=== PATIENT | male | born 1970 | race Caucasian/White ===

== ENCOUNTER → 2020-05-19 11:55 | Outpatient (BNVA) | payer OTHER, SELFPAY | PROVIDERS: PCP Nurse Practitioner Family; Visit Provider Internal Medicine Cardiovascular Disease | DX: I35.0 Nonrheumatic aortic (valve) stenosis (principal) | CPT/HCPCS: 93005 ==

== ENCOUNTER → 2020-12-16 09:11 | Outpatient (REF) | payer OTHER, SELFPAY ==
--- NOTE | 2020-12-16 09:15 | CA_ITS ---
Transthoracic Echocardiogram Patient (Last, First, Middle): Roberto Baldwin J Gender: Male Date of : 1970 Age: 50 Procedure Date: 12/16/2020 Procedure Type: Transthoracic Echocardiogram Location: OP Height: 175.26 cm Weight: 75.75 kg BSA: 1.91 m2 Heart Rate: bpm BP: 160 / 80 mmHg Apns: Referring MD: Kenny Alas MD Symptoms: I35.0 - Nonrheumatic aortic (valve) stenosis Study Quality: Good ECG Rhythm: Sinus Conclusions: - The left ventricular systolic function is normal. The visually estimated ejection fraction is between 60-65%. - There is moderate septal asymmetric hypertrophy. - There is severe calcification of the aortic valve. There is severe aortic valve stenosis. The peak aortic velocity is 4.31 m/s with a calculated peak gradient of 74 mmHg. The mean gradient is 43 mmHg. The aortic valve area is 0.85 cm2. There is no aortic valve regurgitation. Suspect bicuspid valve with fusion between left and right coronary cusps. - There is mild aortic annular dilatation measuring 3.30 cm and mild dilatation of the ascending aorta measuring 3.80 cm. - Freely mobile echodensity (about 1.1x0.4cm) arising from the sinus of Valsalva adjacent to non-coronary cusp, likely calcification. Findings Left Ventricle Normal left ventricular cavity size. The left ventricular systolic function is normal. The visually estimated ejection fraction is between 60-65%. There is no evidence of regional wall motion abnormalities. Diastolic function is normal for age. There is moderate septal asymmetric hypertrophy. Right Ventricle Mildly increased right ventricular cavity size. There is normal right ventricular systolic function. Atria Both atria are normal in size. Aortic Valve There is severe calcification of the aortic valve. There is severe aortic valve stenosis. The peak aortic velocity is 4.31 m/s with a calculated peak gradient of 74 mmHg. The mean gradient is 43 mmHg. The aortic valve area is 0.85 cm2. There is no aortic valve regurgitation. Suspect bicuspid valve with fusion between left and right coronary cusps. Dimensionless index 0.25. Mitral Valve The mitral valve appears normal. There is trace mitral valve regurgitation. There is no mitral valve stenosis. Pulmonic Valve The pulmonic valve was not well visualized. There is trace pulmonic valve regurgitation. Tricuspid Valve Normal tricuspid valve structure. There is trace tricuspid valve regurgitation. The pulmonary artery systolic pressure is normal. Great Vessels There is mild aortic annular dilatation measuring 3.30 cm and mild dilatation of the ascending aorta measuring 3.80 cm. Freely mobile echodensity (about 1.1x0.4cm) arising from the sinus of Valsalva adjacent to non-coronary cusp, likely calcification. Venous The inferior vena cava is mildly dilated and collapses greater than 50% with inspiration. Pericardium/Pleural There is no evidence of pericardial effusion. Prior Study Comparison Changes noted compared to prior study dated: 12/06/2019. See comments on ascending aorta. Aortic valve gradients are similar but valve area smaller. Measurements 2D Linear Measurements RVIDd: 3.23 RVIDd Index: 1.69 IVSd: 1.39 0.6-0.9/0.6-1.0 cm LVIDd: 5.06 3.9-5.3/4.2-5.9 cm LVIDd Index: 2.65 2.4-3.2/2.2-3.1 cm/m2 LVIDs: 2.76 2.0-3.6 cm LVPWd: 0.98 0.7-1.1 cm Ao Root: 3.30 2.1-3.5 cm LA Diam: 3.90 2.7-3.8/3.0-4.0 cm LAIDs Index: 2.04 1.5-2.3 cm/m2 LV Mass: 292.02 67-162/88-224 g LV Mass Index: 152.89 43-95/49-115 g/m2 LVOT Diam: 2.10 3.0+(-)1.3 cm 2D Systolic Function EF 4C: 67.30 >55% EF 2C: 80.30 >55% EF BiP: 74.60 >55% Mitral Valve MV Pk E: 0.74 MV PK A: 0.71 MV Decel Time: 215.00 E/A: 1.00 E'Lateral: 7.51 E'Medial: 6.74 E/E' Med: 11.00 E/E' Lat: 9.90 PHT: 63.00 MVA PHT: 3.49 Decel Taylor: 3.45 Aortic Valve AoV Pk Rios: 4.31 AoV Mn Rios: 3.07 AoV VTI: 1.06 AoV Pk Grad: 74.00 Aov Mn Grad: 43.00 SAL Cont.VTI: 0.85 LVOT LVOT Pk Rios: 1.08 LVOT Mn Rios: 0.74 LVOT VTI: 0.26 LVOT Pk Grad: 5.00 LVOT Mn Grad: 3.00 LVOT Diam: 2.10 LVOT Area: 3.46 Diastolic Function MV Pk E: 0.74 MV Pk A: 0.71 E/A: 1.00 E'Medial: 6.74 E/E' Med: 11.00 E' Laterial: 7.51 E/E' Lat: 9.90 Tricuspid Valve TR Pk Rios: 2.59 TR Pk Grad: 27.00 RA Press: 8.00 RVSP: 35.00 Great Vessels Aorta Ao Root-2D: 3.30 2.0-3.7 cm Ao Annulus: 3.30 1.4-2.6 cm Ao Asc: 3.80 2.1-3.4 cm Ao Arch: 2.90 Updated in Other Vendor System with Status of Final Kenneth Maria MD electronically signed on 12/16/2020 12:35:20 PM with status of Final
== END ==
LOC: HO.CARD 09:11
PROVIDERS: PCP Nurse Practitioner Family; Visit Provider Internal Medicine Cardiovascular Disease
DX: I35.0 Nonrheumatic aortic (valve) stenosis (principal)
CPT/HCPCS: 93306

== ENCOUNTER 2020-12-22 14:59 | Outpatient (REF) | payer OTHER, SELFPAY ==
[2020-12-22 16:25] LABS: Hematocrit 42.9 % (42-52); Mean Corpuscular Hemoglobin 31.9 pg (27.0-33.0); Mean Corpuscular Volume 91.3 fL (80-98); Mean Platelet Volume 10.4 fL (9.4-12.4); Platelet Count 239 X10*3/uL (160-400); White Blood Count 7.5 X10*3/uL (4.8-10.8)
[2020-12-22 16:32] LABS: Prothrombin Time 11.4 SEC (9.9-13.0)
[2020-12-22 16:41] LABS: Anion Gap 14 (12-20); Blood Urea Nitrogen 14 mg/dL (9-16); Calcium 9.9 mg/dL (8.4-10.2); Carbon Dioxide 26 mmol/L (22-29); Chloride 103 mmol/L (96-108); Estimated Glomerular Filt Rate > 60; Glucose Random 86 mg/dL (60-115); Potassium 4.5 mmol/L (3.3-5.1); Sodium 138 mmol/L (135-145)
== END 2020-12-22 15:00 | disposition home or self-care (01) ==
LOC: HO.LAB 14:59
PROVIDERS: PCP Nurse Practitioner Family; Visit Provider Internal Medicine Cardiovascular Disease
DX: Q23.1 Congenital insufficiency of aortic valve (principal)
CPT/HCPCS: 36415; 80048; 85027; 85610; 87040

== ENCOUNTER → 2021-03-26 10:57 | Outpatient (BNVA) | payer OTHER, SELFPAY | PROVIDERS: PCP Nurse Practitioner Family; Visit Provider Internal Medicine Cardiovascular Disease | DX: Q23.1 Congenital insufficiency of aortic valve (principal); Z95.2 Presence of prosthetic heart valve; Z88.0 Allergy status to penicillin; Z91.013 Allergy to seafood; Z79.899 Other long term (current) drug therapy | CPT/HCPCS: 93005 ==

== ENCOUNTER → 2021-08-05 13:39 | Outpatient (BNVA) | payer OTHER, SELFPAY | PROVIDERS: PCP Nurse Practitioner Family; Visit Provider Internal Medicine Cardiovascular Disease ==

== ENCOUNTER → 2021-09-29 13:05 | Outpatient (REF) | payer OTHER, SELFPAY ==
--- NOTE | 2021-09-29 13:08 | CA_ITS ---
Transthoracic Echocardiogram Patient (Last, First, Middle): Roberto Baldwin J Gender: Male Date of : 1970 Age: 51 Procedure Date: 09/29/2021 Procedure Type: Transthoracic Echocardiogram Location: OP Height: 172.72 cm Weight: 80.74 kg BSA: 1.95 m2 Heart Rate: bpm BP: 138 / 83 mmHg Service Observer: CP/TO Referring MD: Kenny Alas MD Symptoms: Z95.2 - Presence of prosthetic heart valve Study Quality: Good Conclusions: - Normal left ventricular size and systolic function. There is mildly increased left ventricular wall thickness. The visually estimated ejection fraction is between 55-60%. - Moderately increased right ventricular cavity size. There is borderline right ventricular systolic function. - The left atrium is moderately dilated. - A bioprosthetic aortic valve is present. - Mean gradient is slightly higher for this valve type. - There is mild dilatation of the ascending aorta measuring 4.10 cm. Findings Left Ventricle Normal left ventricular size and systolic function. There is mildly increased left ventricular wall thickness. The visually estimated ejection fraction is between 55-60%. There is no evidence of regional wall motion abnormalities. There is paradoxical septal motion consistent with post-operative status. Diastolic function is normal for age. Right Ventricle Moderately increased right ventricular cavity size. There is borderline right ventricular systolic function. Atria The left atrium is moderately dilated. The right atrium is mildly dilated. Aortic Valve A bioprosthetic aortic valve is present. The prosthetic aortic valve appears to be functioning normally. The peak aortic velocity is 2.65 m/s. The mean gradient is 14 mmHg. The aortic valve area is 1.64 cm2. There is no aortic valve regurgitation. Mean gradient is slightly higher for this valve type. Mitral Valve The mitral valve appears normal. There is no mitral valve regurgitation. There is no mitral valve stenosis. Pulmonic Valve The pulmonic valve is likely normal. Tricuspid Valve Normal tricuspid valve structure and function. There is trace tricuspid valve regurgitation. Indeterminate right atrial pressure. Great Vessels There is mild dilatation of the ascending aorta measuring 4.10 cm. The visualized portions of the pulmonary artery and branches are normal. Venous The inferior vena cava is normal in size and collapses greater than 50% with inspiration. Pericardium/Pleural There is no evidence of pericardial effusion. Prior Study Comparison Changes noted compared to prior study dated: 12/16/2020. Moderately increased RV size and borderline function. Left atrium is moderately dilated. Bioprosthetic valve in aortic position. Mildly dilated ascending aorta 4.1 cm. Measurements 2D Linear Measurements IVSd: 1.11 0.6-0.9/0.6-1.0 cm LVIDd: 4.56 3.9-5.3/4.2-5.9 cm LVIDd Index: 2.34 2.4-3.2/2.2-3.1 cm/m2 LVIDs: 2.50 2.0-3.6 cm LVPWd: 1.08 0.7-1.1 cm LA Diam: 3.90 2.7-3.8/3.0-4.0 cm LAIDs Index: 2.00 1.5-2.3 cm/m2 LV Mass: 221.24 67-162/88-224 g LV Mass Index: 113.45 43-95/49-115 g/m2 LVOT Diam: 1.90 3.0+(-)1.3 cm 2D Systolic Function EF 4C: 62.30 >55% EF 2C: 65.20 >55% EF BiP: 64.20 >55% Mitral Valve MV Pk E: 1.00 MV PK A: 0.59 MV Decel Time: 163.00 E/A: 1.70 E'Lateral: 12.80 E'Medial: 7.83 E/E' Med: 12.80 E/E' Lat: 7.80 PHT: 48.00 MVA PHT: 4.58 Decel Stephens: 6.14 Aortic Valve AoV Pk Rios: 2.65 AoV Mn Rios: 1.75 AoV VTI: 0.56 AoV Pk Grad: 28.00 Aov Mn Grad: 14.00 SAL Cont.VTI: 1.64 LVOT LVOT Pk Rios: 1.49 LVOT Mn Rios: 1.01 LVOT VTI: 0.32 LVOT Pk Grad: 9.00 LVOT Mn Grad: 5.00 LVOT Diam: 1.90 LVOT Area: 2.84 Diastolic Function MV Pk E: 1.00 MV Pk A: 0.59 E/A: 1.70 E'Medial: 7.83 E/E' Med: 12.80 E' Laterial: 12.80 E/E' Lat: 7.80 Right Ventricle TAPSE (mm): 18.40 TVS' Rios: 10.00 Tricuspid Valve TR Pk Rios: 2.08 TR Pk Grad: 17.00 RA Press: 3.00 RVSP: 20.00 Great Vessels Aorta Sinus of Valsalva: 3.23 2.0-3.[address] [place]: 2.83 1.7-3.4 cm Ao Asc: 4.10 2.1-3.4 cm Ao Arch: 3.20 Updated in Other Vendor System with Status of Final Kenny Alas MD electronically signed on 10/01/2021 10:15:46 PM with status of Final
== END ==
LOC: HO.CARD 13:05
PROVIDERS: PCP Nurse Practitioner Family; Visit Provider Internal Medicine Cardiovascular Disease
DX: Z95.2 Presence of prosthetic heart valve (principal)
CPT/HCPCS: 93306

== ENCOUNTER → 2021-10-06 13:29 | Outpatient (BNVA) | payer OTHER, SELFPAY ==
[2021-06-18 14:10] VITALS: BP 140/82; BMI 26.1
== END ==
PROVIDERS: PCP Nurse Practitioner Family; Visit Provider Nurse Practitioner Family
DX: I35.0 Nonrheumatic aortic (valve) stenosis (principal); Q23.1 Congenital insufficiency of aortic valve; R55 Syncope and collapse; Z95.2 Presence of prosthetic heart valve
CPT/HCPCS: 93005

== ENCOUNTER → 2021-10-13 11:22 | Outpatient (REF) | payer OTHER, SELFPAY ==
--- NOTE | 2021-10-13 11:24 | HM_ITS ---
* Total monitoring time 2 days and 23 hours. * Underlying rhythm is sinus. Average rate 63/Min. Range 39 to 172/Min. About 5% of the time, rate greater than 100/Min. * No atrial fibrillation or flutter. * Very rare supraventricular ectopy with minimal burden. * Very rare ventricular ectopy with minimal burden. One 3 beat run labeled as NSVT appears rather to be aberrant conduction based on morphology. * No patient events. MTDD
== END ==
LOC: HO.CARD 11:22
PROVIDERS: PCP Nurse Practitioner Family; Visit Provider Nurse Practitioner Family
DX: R55 Syncope and collapse (principal)
CPT/HCPCS: 93242

== ENCOUNTER → 2022-02-17 12:34 | Outpatient (BNVA) | payer OTHER, SELFPAY | PROVIDERS: PCP Nurse Practitioner Family; Visit Provider Internal Medicine Cardiovascular Disease | DX: I51.7 Cardiomegaly (principal); R55 Syncope and collapse; Z95.2 Presence of prosthetic heart valve | CPT/HCPCS: 93005 ==

== ENCOUNTER → 2022-04-20 12:32 | Outpatient (REF) | payer OTHER, SELFPAY ==
--- NOTE | 2022-04-20 12:35 | CA_ITS ---
Transthoracic Echocardiogram Patient (Last, First, Middle): Roberto Baldwin J Gender: Male Date of : 1970 Age: 52 Procedure Date: 04/20/2022 Procedure Type: Transthoracic Echocardiogram Location: OP Height: 175.26 cm Weight: 81.19 kg BSA: 1.97 m2 Heart Rate: bpm BP: 140 / 80 mmHg Shelver: TO Referring MD: Kenny Alas MD Line Tender Flakeboard: Kenny Alas MD Symptoms: I51.7 - Cardiomegaly Study Quality: Fair Conclusions: - Normal left ventricular size and systolic function. The visually estimated ejection fraction is between 55-60%. - Mildly increased right ventricular cavity size. There is borderline right ventricular systolic function. - The left atrium is mildly dilated. The right atrium is mildly dilated. - There is mild to moderate dilatation of the ascending aorta measuring 4.30 cm. - A bioprosthetic aortic valve is present. The peak aortic velocity is 2.57 m/s. The aortic valve area is 1.44 cm2. There is no aortic valve regurgitation. Findings Left Ventricle Normal left ventricular size and systolic function. The visually estimated ejection fraction is between 55-60%. There is no evidence of regional wall motion abnormalities. There is paradoxical septal motion consistent with post-operative status. Diastolic function is normal for age. There is mild septal asymmetric hypertrophy. Right Ventricle Mildly increased right ventricular cavity size. There is borderline right ventricular systolic function. Atria The left atrium is mildly dilated. The right atrium is mildly dilated. Aortic Valve A bioprosthetic aortic valve is present. The peak aortic velocity is 2.57 m/s. The aortic valve area is 1.44 cm2. There is no aortic valve regurgitation. Mitral Valve The mitral valve appears normal. There is no mitral valve regurgitation. There is no mitral valve stenosis. Pulmonic Valve Normal pulmonic valve structure and function. There is trace pulmonic valve regurgitation. Tricuspid Valve Normal tricuspid valve structure. There is trace tricuspid valve regurgitation. Tricuspid regurgitation envelope is inadequate for calculation of right ventricular systolic pressure. Normal right atrial pressure. Great Vessels There is mild dilatation of the ascending aorta measuring 4.30 cm. The visualized portions of the pulmonary artery and branches are normal. Venous The inferior vena cava is normal in size and collapses greater than 50% with inspiration. Pericardium/Pleural There is no evidence of pericardial effusion. Prior Study Comparison No significant change compared to prior study dated: 09/29/2021. Measurements 2D Linear Measurements IVSd: 1.29 0.6-0.9/0.6-1.0 cm LVIDd: 4.69 3.9-5.3/4.2-5.9 cm LVIDd Index: 2.38 2.4-3.2/2.2-3.1 cm/m2 LVIDs: 2.92 2.0-3.6 cm LVPWd: 0.84 0.7-1.1 cm LA Diam: 3.80 2.7-3.8/3.0-4.0 cm LAIDs Index: 1.93 1.5-2.3 cm/m2 LV Mass: 222.61 67-162/88-224 g LV Mass Index: 113.00 43-95/49-115 g/m2 LVOT Diam: 2.00 3.0+(-)1.3 cm 2D Systolic Function EF 4C: 59.40 >55% EF 2C: 57.10 >55% EF BiP: 58.50 >55% Mitral Valve MV Pk E: 0.73 MV PK A: 0.46 MV Decel Time: 266.00 E/A: 1.60 E'Lateral: 11.20 E'Medial: 7.62 E/E' Med: 9.60 E/E' Lat: 6.50 PHT: 78.00 MVA PHT: 2.82 Decel [place]: 2.75 Aortic Valve AoV Pk Rios: 2.57 AoV Mn Rios: 1.66 AoV VTI: 0.55 AoV Pk Grad: 26.00 Aov Mn Grad: 13.00 SAL Cont.VTI: 1.44 LVOT LVOT Pk Rios: 0.99 LVOT Mn Rios: 0.72 LVOT VTI: 0.25 LVOT Pk Grad: 4.00 LVOT Mn Grad: 2.00 LVOT Diam: 2.00 LVOT Area: 3.14 Diastolic Function MV Pk E: 0.73 MV Pk A: 0.46 E/A: 1.60 E'Medial: 7.62 E/E' Med: 9.60 E' Laterial: 11.20 E/E' Lat: 6.50 Right Ventricle TAPSE (mm): 19.30 TVS' Rios: 10.20 Tricuspid Valve RA Press: 3.00 Great Vessels Aorta Sinus of Valsalva: 2.88 2.0-3.5 cm Ao Asc: 4.30 2.1-3.4 cm Updated in Other Vendor System with Status of Final Kenny Alas MD electronically signed on 04/20/2022 6:47:08 PM with status of Final
== END ==
LOC: HO.CARD 12:32
PROVIDERS: Visit Provider Internal Medicine Cardiovascular Disease
DX: I51.7 Cardiomegaly (principal)
CPT/HCPCS: 93306

== ENCOUNTER 2024-08-30 08:17 | Outpatient (AMB) | payer OTHER, SELFPAY ==
[2024-08-30 08:19] VITALS: BP 120/78; PULSE 58; BMI 26.4
--- NOTE | 2024-08-30 08:19 | A.OFFVIS_ITS ---
Vital Signs 08/30/24 08:19 Height 5 ft 9 in Weight 178 lb 9.191 oz BMI 26.4 BP 120/78 Blood Pressure Location Lt brachial Position Sitting Pulse 58 Intake Visit Reasons: Right ventricular dilation Intake Note: Follow-up dx right ventricular dilation feeling good Application Packager Required: No Allergies penicillin Allergy (Unknown, Uncoded 02/17/22 12:37) rash shellfish Allergy (Unknown, Uncoded 02/17/22 12:37) vomitting,rash Medication List - Last Reconciled 08/30/24 by Samia Guerra NP-C aspirin 325 mg PO DAILY atorvastatin 20 mg PO DAILY metoprolol succinate ER 50 mg PO BID HPI HPI Right ventricular dilation: Details: Roberto is a 54 yo male with PMH of HLD, Bicuspid aortic valve, s/p bioprosthetic AVR, aortic root enlargment, septal myomectomy 03/03/21, mild RV dilation who presents for follow up. His last visit was 02/17/22. Today he reports he has been doing very well over the last few years. He has no concerning symptoms. He denies any chest discomfort, sob, palpitations, presyncope, syncope. He works from home and goes to the gym 3-4 times per week ( machines and cardio). Taking meds as directed. Takes antibiotic prior to dental work. [facility] Medical History Aortic stenosis Bicuspid aortic valve Surgical History Status post aortic valve replacement History of neck surgery History of knee surgery Family History Father Heart attack CVD (cardiovascular disease) Mother HTN (hypertension) High cholesterol Social History Alcohol intake: current Alcohol intake frequency: a few times a week Patient Tobacco Use Status: Never used Tobacco Review of Systems Const All systems reviewed & are unremarkable except as noted in HPI and below Denies chills, Denies fatigue, Denies fever(s), Denies frequent falls, Denies weakness, Denies weight gain and Denies weight loss ENT Denies dizziness Card Denies chest pain, Denies leg edema, Denies lightheadedness, Denies palpitations, Denies dyspnea, Denies dyspnea on exertion, Denies orthopnea and Denies other (loss of consciousness) Resp Denies cough, Denies dyspnea and Denies dyspnea on exertion GI Denies hematochezia and Denies change in stool character Musc Denies abnormal gait, Denies muscle weakness, Denies numbness, Denies radiating pain into limb and Denies tingling Neuro Denies abnormal gait, Denies dizziness, Denies frequent falls, Denies numbness, Denies tingling and Denies weakness Endo Denies fatigue and Denies palpitations Physical Exam Vital Signs: Last Vital Signs Pulse 58 08/30/24 08:19 BP 120/78 08/30/24 08:19 BMI result Body Mass Index 26.4 Const General: cooperative, healthy appearing, comfortable and no acute distress Orientation/consciousness: patient oriented x3 Neck Neck: Yes normal visual inspection and Yes no JVD Resp Effort & Inspection: normal respiratory effort Auscultation: clear to auscultation bilaterally, no crackles, no rales, no rhonchi and no wheezes Cardio Rate: regular rate Rhythm: regular rhythm Heart sounds: S1 normal heart sound present, S2 normal heart sound present, Murmur heart sound present (1/6 systolic murmur) and no rubs Neuro General: patient oriented x3 Extrem General: Yes normal to inspection, No no pedal edema and No calf tenderness Psych Appearance: grossly normal Mental Status: mental status grossly normal Speech and movement: Normal speech and movement present Office Procedures EKG Details: Today, read by me, Sinus bradycardia, LVH with QRS widening, rate 57, Qtc 393ms [id number], Complete Assessment & Plan Assessment & Plan (1) Bicuspid aortic valve: Code(s): Q23.1 - Congenital insufficiency of aortic valve Category: Medical Plan: His of Bicuspid aortic valve with severe stenosis. He underwent Bioprosthetic AVR, aortic root enlargement, septal myomectomy on 03/03/21 at [facility] with Dr Boudreaux. Last echocardiogram 04/20/2022 showed EF 55-60%, mild increase in the RV size, left atrium and right atrium mildly dilated, ascending aorta 4.3 cm, bio AVR functioning normally. He did have a cardiac MRI to further evaluate the RV on 07/02/2022 showing EF 60%, no abnormal muscle enhancement, aortic valve with small regurgitant jet, normal RV size and motion, stenotic jet of pulmonic valve, ascending aorta max 4.1 cm. He has no concerning symptoms. EKG today showing sinus bradycardia with LVH, QRS widening, rate 57. Will update echocardiogram and call him with results.. Continue aspirin, atorvastatin, metoprolol. Labs followed by PCP. Endocarditis prophylaxis reviewed. Continue exercise as tolerated. Cardiology follow-up 2 years, sooner if needed. (2) Aortic stenosis: Code(s): I35.0 - Nonrheumatic aortic (valve) stenosis Category: Medical (3) Status post aortic valve replacement: Code(s): Z95.2 - Presence of prosthetic heart valve Category: Surgical (4) Right ventricular dilation: Code(s): I51.7 - Cardiomegaly Category: Medical Plan Time spent on chart review, documentation, interview and assessment Orders: Orders CA echo transthoracic complete Today I51.7 - Cardiomegaly, Z95.2 - Presence of prosthetic heart valve Coding Level of Care Code Est Pt Level 4 (60209) Complex EM visit Add On G2211 Diagnoses Bicuspid aortic valve Q23.1 Aortic stenosis I35.0 Status post aortic valve replacement Z95.2 Right ventricular dilation I51.7 CPT Codes EKG - CPT: 51245-[id number], Complete ([id number]) Time Spent (min) 30
--- OUTSIDE RECORDS SUMMARY | 2024-08-30 08:38 | XMS_ITS | Clinical Summary ---
[facility] [address] [place] [address] Care Team Providers Care Taxonomy Teacher Name Role Phone Unavailable Primary Care Provider Unavailabl e Social History Tobacco Use Types Packs/Day Years Used Date Smoking Tobacco: Never Assessed Sex and Gender Information Value Date Recorded Sex Assigned at Not on file Gender Identity Not on file Sexual Orientation Not on file Plan of Treatment Not on file
== END 2024-08-30 08:45 | disposition home or self-care (01) ==
LOC: HO.HCS 08:17
PROVIDERS: Visit Provider Nurse Practitioner Family
DX: Q23.1 Congenital insufficiency of aortic valve (principal); I35.0 Nonrheumatic aortic (valve) stenosis; Z95.2 Presence of prosthetic heart valve; I51.7 Cardiomegaly
CPT/HCPCS: 93010; 99214; G2211

== ENCOUNTER → 2024-08-30 08:17 | Outpatient (BNVA) | payer OTHER, SELFPAY | PROVIDERS: Visit Provider Nurse Practitioner Family | DX: Q23.1 Congenital insufficiency of aortic valve (principal); I35.0 Nonrheumatic aortic (valve) stenosis; I51.7 Cardiomegaly; Z95.2 Presence of prosthetic heart valve | CPT/HCPCS: 93005 ==

== ENCOUNTER → 2024-10-25 10:58 | Outpatient (REF) | payer OTHER, SELFPAY ==
--- NOTE | 2024-10-25 11:17 | CA_ITS ---
Transthoracic Echocardiogram Patient (Last, First, Middle): Roberto Baldwin J Gender: Male Date of : 1970 Age: 54 Procedure Date: 10/25/2024 Procedure Type: Transthoracic Echocardiogram Location: OP Height: 175.26 cm Weight: 78.47 kg BSA: 1.94 m2 Heart Rate: bpm BP: 134 / 72 mmHg Manager Business Continuity: TO Referring MD: Samia Guerra NP-Jayson Electrical Maintenance Worker: Elan Guerra MD Symptoms: Z95.2 - Presence of prosthetic heart valve Study Quality: Adequate ECG Rhythm: Sinus Conclusions: - 1. Normal LV ejection fraction of 60 65% with grade 1 diastolic dysfunction 2. Mildly dilated left atrium 3. Moderately dilated right ventricle with preserved contractility 4. Bioprosthetic aortic valve present with increased gradient at 15 mm Hg which maybesuggestive of patient prosthesis mismatch 5. Significantly elevated right atrial pressures 6. Mildly dilated ascending aorta 7. No pericardial effusion Findings Left Ventricle Normal left ventricular size, thickness, and systolic function. The visually estimated ejection fraction is between 60-65%. Spectral Doppler is indicative of an impaired relaxation filling pattern. E/E prime ratio is <8, consistent with normal filling pressures. Evidence suggests grade I (mild) diastolic dysfunction. Right Ventricle Moderately increased right ventricular cavity size. There is low normal right ventricular systolic function. Atria The left atrium is mildly dilated. There is no evidence of interatrial shunt. The right atrium is mildly dilated. Aortic Valve A bioprosthetic aortic valve is present. The mean gradient is 15 mmHg. There is no aortic valve regurgitation. increased gradient across the bioprosthetic valve could be related to patient prosthesis mismatch, although unchanged. The valve is well-seated without abnormal rocking motion Mitral Valve There is mild anterior and posterior mitral leaflet thickening. There is trace mitral valve regurgitation. There is no mitral valve stenosis. Pulmonic Valve The pulmonic valve was not well visualized. Tricuspid Valve Likely normal tricuspid valve structure and function. Tricuspid regurgitation envelope is inadequate for calculation of right ventricular systolic pressure. Moderately elevated right atrial pressure. Great Vessels There is mild dilatation of the ascending aorta measuring 4.20 cm. Small plaque is seen in the sino tubular ridge. Venous The inferior vena cava is moderately dilated and does not collapse with inspiration. Pericardium/Pleural There is no evidence of pericardial effusion. Prior Study Comparison No significant change compared to prior study dated: 04/20/2022. Measurements 2D Linear Measurements IVSd: 1.19 0.6-0.9/0.6-1.0 cm LVIDd: 4.60 3.9-5.3/4.2-5.9 cm LVIDd Index: 2.37 2.4-3.2/2.2-3.1 cm/m2 LVIDs: 2.80 2.0-3.6 cm LVPWd: 0.87 0.7-1.1 cm LA Diam: 4.20 2.7-3.8/3.0-4.0 cm LAIDs Index: 2.16 1.5-2.3 cm/m2 LV Mass: 206.00 67-162/88-224 g LV Mass Index: 106.18 43-95/49-115 g/m2 LVOT Diam: 2.00 3.0+(-)1.3 cm 2D Systolic Function EF 4C: 54.40 >55% EF 2C: 63.90 >55% EF BiP: 60.90 >55% Mitral Valve MV Pk E: 0.67 MV PK A: 0.32 MV Decel Time: 170.00 E/A: 2.10 E'Lateral: 11.70 E'Medial: 7.07 E/E' Med: 9.50 E/E' Lat: 5.70 PHT: 50.00 MVA PHT: 4.40 Decel [place]: 3.94 Aortic Valve AoV Pk Rios: 2.88 AoV Mn Rios: 1.77 AoV VTI: 0.66 AoV Pk Grad: 33.00 Aov Mn Grad: 15.00 SAL Cont.VTI: 1.37 LVOT LVOT Pk Rios: 1.26 LVOT Mn Rios: 0.99 LVOT VTI: 0.29 LVOT Pk Grad: 6.00 LVOT Mn Grad: 4.00 LVOT Diam: 2.00 LVOT Area: 3.14 Diastolic Function MV Pk E: 0.67 MV Pk A: 0.32 E/A: 2.10 E'Medial: 7.07 E/E' Med: 9.50 E' Laterial: 11.70 E/E' Lat: 5.70 Right Ventricle TAPSE (mm): 17.90 TVS' Rios: 12.90 Tricuspid Valve RA Press: 15.00 Great Vessels Aorta Sinus of Valsalva: 3.22 2.0-3.5 cm Ao Asc: 4.20 2.1-3.4 cm Ao Arch: 3.20 Updated in Other Vendor System with Status of Final Elan Guerra MD electronically signed on 10/25/2024 4:33:01 PM with status of Final
--- OUTSIDE RECORDS SUMMARY | 2024-10-25 11:39 | XMS_ITS | Clinical Summary ---
Author Organization [facility] Address [address] [place] [address] Care Team Providers Care Corporate Claims Examiner Name Role Phone Unavailable Primary Care Provider Unavailabl e Social History Tobacco Use Types Packs/Day Years Used Date Smoking Tobacco: Never Assessed Sex and Gender Information Value Date Recorded Sex Assigned at Not on file Gender Identity Not on file Sexual Orientation Not on file Plan of Treatment Not on file
--- OUTSIDE RECORDS SUMMARY | 2024-10-25 11:39 | XMS_ITS ---
Author Name [facility] Organization Unknown Results Test Name/Text Value Interpretation Date Range Source Potassium SerPl-sCnc 4.8mmol/L Normal 3.5 - 5.3 [facility] AST SerPl-cCnc 34U/L Normal 10 - 35 [facility] Globulin Ser Calc-mCnc 2.5g/dL(calc) Normal 1.9 - 3.7 [facility] Creat SerPl-mCnc 0.93mg/dL Normal 0.7 - 1.3 [facility] Chloride SerPl-sCnc 103mmol/L Normal 98 - 11 0 [facility] Prot SerPl-mCnc 7g/dL Normal 6.1 - 8.1 Q [facility] Calcium SerPl-mCnc 9.4mg/dL Normal 8.6 - 10 .3 [facility] Sodium SerPl-sCnc 138mmol/L Normal [id number] 135 - 146 [facility] Albumin SerPl-mCnc 4.5g/dL Normal 3.6 - 5. 1 [facility] BUN SerPl-mCnc 13mg/dL Normal 7 - 25 [facility] Bilirub SerPl-mCnc 0.8mg/dL Normal [id number] 0.2 - 1. 2 [facility] ALT SerPl-cCnc 39U/L Normal [id number] 9 - 46 [facility] Glucose SerPl-mCnc 91mg/dL Normal [id number] 65 - 99 [facility] BUN/Creat SerPl SEE NOTE: 6 - 22 Q [facility] ALP SerPl-cCnc 60U/L Normal 35 - 144 [facility] CO2 SerPl-sCnc 29mmol/L Normal 20 - 32 [facility] Albumin/Glob SerPl 1.8(calc) Normal [id number] 1 - 2.5 [facility] eGFRcr SerPlBld CKD-EPI 2020 96mL/min/1.73m2 Normal - [facility] Trigl SerPl-mCnc 96mg/dL Normal - 150 [facility] LDLc SerPl Calc-mCnc 74mg/dL(calc) Normal [facility] HDLc SerPl-mCnc 55mg/dL Normal - Q [facility] NonHDLc SerPl-mCnc 92mg/dL(calc) Normal - 13 0 [facility] Cholest/HDLc SerPl 2.7(calc) Normal - 5 [facility] Cholest SerPl-mCnc 147mg/dL Normal [id number] - 200 [facility] PSA SerPl-mCnc 0.37ng/mL Normal - QU EST Monocytes # Bld Auto 736cells/uL Normal 200 - 950 [facility] PMV Bld Daniel-Shannon 11.1fL Normal [id number] 7.5 - 12 .5 [facility] RDW RBC Auto 12.4% Normal 11 - 15 [facility] T Hct VFr Bld Auto 42.8% Normal 38.5 - 50 [facility] Basophils # Bld Auto 70cells/uL Normal [id number] 0 - 2 00 [facility] MCH RBC Qn Auto 32.4pg Normal 27 - 33 Q [facility] Neutrophils # Bld Auto 3040cells/uL Normal 1 500 - 7800 [facility] Basophils NFr Bld Auto 1.1% Normal [id number] [facility] Eosinophil NFr Bld Auto 3.3% Normal [id number] [facility] Monocytes NFr Bld Auto 11.5% Normal [id number] [facility] RBC # Bld Auto 4.5Million/uL Normal [id number] 4.2 - 5. 8 [facility] Lymphocytes # Bld Auto 2342cells/uL Normal [id number] 8 50 - 3900 [facility] Neutrophils NFr Bld Auto 47.5% Normal [id number] [facility] Hgb Bld-mCnc 14.6g/dL Normal 13.2 - 17.1 [facility] MCHC RBC Auto-EntMCnc 34.1g/dL Normal 32 - 36 [facility] Eosinophil # Bld Auto 211cells/uL Normal 15 - 500 [facility] WBC # Bld Auto 6.4Thousand/uL Normal [id number] 3.8 - 1 0.8 [facility] Platelet # Bld Auto 194Thousand/uL Normal [id number] 14 0 - 400 [facility] Lymphocytes NFr Bld Auto 36.6% Normal [id number] [facility] RBC Auto 95.1fL Normal [id number] 80 - 100 [facility] Encounters Encounter Type Encounter Reason Primary Diagnosis Location Date Ambulatory [facility] 10/03/2024 Care Team Organization Name Specialty Phone Email Start Date End Da te Formerly [facility] 2024
== END ==
LOC: HO.CARD 10:58
PROVIDERS: Visit Provider Nurse Practitioner Family
DX: I51.7 Cardiomegaly (principal); Z95.2 Presence of prosthetic heart valve
CPT/HCPCS: 93306

== ENCOUNTER → 2024-10-25 11:17 | Outpatient (BNV) | payer OTHER, SELFPAY | PROVIDERS: Visit Provider Internal Medicine Cardiovascular Disease | DX: I51.89 Other ill-defined heart diseases (principal); Z95.3 Presence of xenogenic heart valve | CPT/HCPCS: 93306 ==